=== PATIENT | male | born 1995 | race African-American/Black ===

== ENCOUNTER 2017-07-23 14:58 | Emergency (ER) | payer OTHER ==
[2017-07-23 16:24] VITALS: BP 124/62
--- NOTE | 2017-07-23 17:06 | UC ---
Eye Complaint HPI - HPI Summary HPI Summary: ONE WEEK AGO RIGHT EYE REDNESS, CONGESTION. CONCERN RESOLVED. TODAY, LEFT EYE REDNESS AND DISCHARGE. NO PAIN WITH EYE MOVEMENT. - History of Current Complaint Chief Complaint: UCEye Stated Complaint: EYE COMPLAINT Time Seen by Provider: 07/23/17 16:08 Hx Obtained From: Patient Onset/Duration: Lasting Weeks, Worse Since - TODAY Timing: Intermittent Episode Lasting Severity Initially: Mild Severity Currently: Mild Pain Intensity: 0 Pain Scale Used: 0-10 Numeric Location of Injury: Conjunctiva Character: Dull Aggravating Factor(s): Nothing Alleviating Factor(s): Nothing Associated Signs And Symptoms: Positive: Drainage (Clear), Drainage (Purulent). Negative: Vision Impairment Right, Vision Impairment Left, Fever, Swelling - Risk Factors Penetrating Injury Risk Factor: Negative Acute Glaucoma Risk Factors: Eye Inflammation Optic Artery Occlusion Risk Factors: Negative - Allergies/Home Medications Allergies/Adverse Reactions: Allergies Allergy/AdvReac Type Severity Reaction Status Date / Time seasonal Allergy Eyes Uncoded 07/23/17 16:24 Itchy/Swollen/Red/Watery Home Medications: Home Medications Collagen-Vitamin C [Collagen Plus Vitamin C] 2 cap PO SEE INSTRUCTIONS 07/23/17 [History Confirmed 07/23/17] Zinc Gluconate [Zinc] 10 mg MT DAILY 07/23/17 [History Confirmed 07/23/17] PMH/Surg Hx/FS Hx/Imm Hx Previously Healthy: Yes - Surgical History Surgical History: Yes Surgery Procedure, Year, and Place: right knee meniscus - Family History Known Family History: Positive: None Negative: Respiratory Disease - Social History Occupation: Employed Part-time, Student Lives: Alone Alcohol Use: Weekly Alcohol Amount: 5-6 Substance Use Type: None Smoking Status (MU): Never Smoked Tobacco Review of Systems Constitutional: Negative Skin: Negative Eyes: Drainage, Eye Redness ENT: Negative Respiratory: Negative Cardiovascular: Negative Gastrointestinal: Negative Genitourinary: Negative Motor: Negative Neurovascular: Negative Musculoskeletal: Negative Neurological: Negative Psychological: Negative Is Patient Immunocompromised?: No All Other Systems Reviewed And Are Negative: Yes Physical Exam Triage Information Reviewed: Yes Appearance: Well-Appearing, No Pain Distress, Well-Nourished Vital Signs: Initial Vital Signs Temp 98.5 F 07/23/17 16:14 Pulse 65 07/23/17 16:14 Resp 18 07/23/17 16:14 BP 124/62 07/23/17 16:14 Eyes: Positive: Conjunctiva Inflamed - LEFT, Discharge - LEFT ENT Exam: Normal Dental Exam: Normal Neck exam: Normal Neck: Positive: Supple, Nontender, No Lymphadenopathy Respiratory Exam: Normal Respiratory: Positive: Chest non-tender, Lungs clear, Normal breath sounds, No respiratory distress, No accessory muscle use Cardiovascular Exam: Normal Cardiovascular: Positive: RRR, No Murmur, Pulses Normal Abdominal Exam: Normal Musculoskeletal Exam: Normal Musculoskeletal: Positive: Strength Intact, ROM Intact Neurological Exam: Normal Psychological Exam: Normal Skin Exam: Normal Eye Complaint Course/Dx - Differential Dx/Diagnosis Differential Diagnosis/HQI/PQRI: Conjunctivitis, Corneal Abrasion, Penetrating Injury, Periorbital Cellulitis, Orbital Cellulitis, Retinal Artery Occlusion, Uveitis Provider Diagnoses: LEFT CONJUNCTIVITIS Discharge - Discharge Plan Condition: Stable Disposition: HOME Prescriptions: Amoxicillin PO (*) [Amoxicillin 875 MG (*)] 875 mg PO BID #20 tab Tobramycin 0.3% OPHTH.RAJAN* 1 drop LEFT EYE Q4H #1 btl Patient Education Materials: Sinusitis (ED), Conjunctivitis (ED) Forms: *School Release Referrals: Non Staff,Doctor [Primary Care Provider] -
== END 2017-07-23 17:03 | disposition home or self-care (01) ==
LOC: UCCORT 14:58
DX: H10.32 Unspecified acute conjunctivitis, left eye (principal)
CPT/HCPCS: 99212; G0463